=== PATIENT | female | born 1955 | race African-American/Black ===

== ENCOUNTER 2018-02-18 11:49 | Emergency (ER) | payer OTHER ==
[~2018-02-18] VITALS: Ht 172.7 cm; Wt 81.6 kg
[2018-02-18] MEDS ORDERED: LANTUS SOL100 UNIT/1 (12:59)
[2018-02-18] MEDS ORDERED: FORTAMET1000 MG (12:59)
[2018-02-18] MEDS ORDERED: NORFLEX100MG PO (17:35)
[2018-02-18] MEDS ORDERED: DICLOFENAC POTA50 MG PO (17:35)
== END 2018-02-18 17:55 | disposition home or self-care (01) ==
LOC: ER 11:49
DX: S30.0XXA Contusion of lower back and pelvis, initial encounter (principal); S70.02XA Contusion of left hip, initial encounter; S70.01XA Contusion of right hip, initial encounter; W18.39XA Other fall on same level, initial encounter; Y93.89 Activity, other specified; Y92.520 Airport as the place of occurrence of the external cause; Y99.8 Other external cause status